=== PATIENT | male | born 1995 | race African-American/Black ===

== ENCOUNTER 2024-04-29 18:52 | Emergency (ER) | payer MEDICAID ==
[~2024-04-29] VITALS: Ht 185.4 cm; Wt 80.0 kg
[2024-04-29 18:55] VITALS: BP 118/72; PULSE 72; RESP 18; TEMP 98.1; O2SAT 98
== END 2024-04-29 20:47 | disposition left against medical advice (07) ==
LOC: ER 18:52
DX: K62.5 Hemorrhage of anus and rectum (principal); Z53.21 Procedure and treatment not carried out due to patient leaving prior to being seen by health care provider